=== PATIENT | female | born 1990 | race Caucasian/White ===

== ENCOUNTER 2017-10-22 11:14 | Emergency (ER) | payer OTHER ==
[~2017-10-22] VITALS: Ht 165.1 cm; Wt 98.1 kg
[~2017-10-22 11:14] MED LIST: NO HOME MEDS
[2017-10-22] MEDS ORDERED: AMOXICILLIN500 MG PO (13:02)
[2017-10-22 13:11] VITALS: BP 121/56
== END 2017-10-22 13:13 | disposition home or self-care (01) ==
LOC: EME 11:14
DX: J02.8 Acute pharyngitis due to other specified organisms (principal); F17.200 Nicotine dependence, unspecified, uncomplicated
CPT/HCPCS: 87651 90; 99281; 99284